=== PATIENT | female | born 1945 | race Caucasian/White ===

== ENCOUNTER 2019-05-02 09:59 | Day surgery (SDC) | payer OTHER, MEDICARE ==
[2019-04-29 09:44] LABS: Absolute Lymphocytes (CBC) 0.4 K/uL (0.7-4.9); Basophils % 1.3 % (0-1.3); Hematocrit 40.8 % (36.0-45.0); Lymphocytes % 16.5 % (15.3-44.8); MPV 9.1 fL (7.6-11.3); RBC Red Blood Cell Count 4.46 M/uL (3.86-4.86)
[2019-04-29 10:04] LABS: Potassium 3.7 mmol/L (3.5-5.1)
[2019-04-29 10:28] LABS: Platelet Estimate DECR; Platelets, Giant PRESENT; Urine White Blood Cell Casts OK
[2019-04-29 10:29] LABS: Blood Morphology Comment NOT SEEN (NOT SEEN)
--- NOTE | 2019-04-29 11:58 | EKG ---
Test Date: 2019-04-29 Test Time: 08:35:33 Senior Business Process Analyst: SHERI MEASUREMENT RESULTS: Intervals: Rate: 63 UT: 168 QRSD: 82 QT: 424 QTc: 433 [place]: P: 41 UT: 168 QRS: -16 T: 60 INTERPRETIVE STATEMENTS: Normal sinus rhythm with sinus arrhythmia Normal ECG Compared to ECG 03/01/2016 06:14:09 Left-axis deviation no longer present Myocardial infarct finding no longer present Electronically Signed On 04-29-19 11:58:04 CDT by Petr Campbell
[2019-05-02] MEDS ORDERED: Ringers Lactate 1,000 ML IV ONE (10:05)
[2019-05-02] MEDS ORDERED: CEFAZOLIN/SWI 1gm 1 GM/10 ML SYR ONE (10:05)
[2019-05-02] MEDS ORDERED: FENTANYL CITR 100 MCG/2 ML ONE (11:06)
[2019-05-02] MEDS ORDERED: LIDOCAINE 1% MPF 5 ML VIAL ONE (11:06)
[2019-05-02] MEDS ORDERED: PROPOFOL 200 MG/20 ML VIAL IV ONE (11:06)
[2019-05-02] MEDS ORDERED: Mastisol Adhesive Liq ONE (12:08)
[2019-05-02] MEDS ORDERED: ONDANSETRON 4 MG/2 ML VIAL ONE ×2 (12:13→12:48)
[2019-05-02] MEDS ORDERED: HYDROMORPHONE HCL 1 MG/ML INJ ONE (12:41)
[2019-05-02] MEDS ORDERED: HEPARIN 500 UNIT/5 ML SYR IV ONE (13:50)
[2019-05-02] MEDS ORDERED: PROMETHAZINE 25 MG/ML VIAL ONE (14:03)
[2019-05-02] MEDS ORDERED: PROMETHAZINE 25 MG/ML VIAL IV ONE (14:10)
[2019-05-02] MEDS ORDERED: HYDROCODONE/APAP 7.5/325 MG TAB ONE (14:47)
[2019-05-02] MEDS ORDERED: HYDROCODONE/APAP 7.5/325 MG TAB PO ONE (14:49)
[2019-05-02 14:53] VITALS: BP 132/62; TEMP 98.6; O2SAT 98
--- NOTE | 2019-05-02 23:54 | OP ---
Date of Procedure: 05/02/2019 Surgeon: Troy Arcos MD Preoperative Diagnosis: Lymphadenopathy. Postoperative Diagnosis: Lymphadenopathy. Procedure: Incisional biopsy of enlarged left neck lymph node. Estimated Blood Loss: Minimal. Specimen: Lymph node. Findings: As above. Anesthesia: General. Complications: None. Disposition: Patient tolerated the procedure in stable condition, taken to Recovery in good general condition. Description Of Procedure: Patient was brought to the OR and placed in supine position. General anes thesia was begun. Patient was prepped and draped in usual sterile fashion in the left supraclavicula r area. Marcaine 0.5% was infiltrated locally. A 15-blade was used to make a 3 cm incision. Subcut aneous tissue was divided. Deep to the subcutaneous tissue, enlarged lymph node was identified. Inc isional biopsy performed with a sharp 15 blade. There was necrotic tissue present in there, but ther e was the lymph node tissue as well. Approximately a 2 cm area of lymph node was excised and sent to Pathology. Confirmation obtained. Wound was irrigated. Bleeding was controlled with cautery. The re was some oozing noted. Surgicel applied and the deep subcutaneous tissue closed with a figure-of- eight 3-0 chromic sutures. Then, 3-0 chromic used to reapproximate the subcutaneous tissue and close the skin. Sterile dressing was applied. The patient was awakened and taken to Recovery in good general condition. /MODL Voice ID: [id number] Report ID: [id number]
--- NOTE | 2019-05-03 | DS ---
Date of Discharge: 05/02/2019 Patient will go to Day Surgery, then home when stable. Disposition: Home. Condition: Stable. Discharge Instructions: Resume home medications and diet. Activity as tolerated. No heavy lifting. Remove outer dressing in 3 days. Shower. Keep wound clean and dry. Keep Steri-Strips on at all t imes. Follow up in my office in a week. Call for appointment. Tylenol No. 3 one tablet p.o. q.4 p. r.n. pain. /MODL Voice ID: [id number] Report ID: [id number]
== END 2019-05-02 15:20 | disposition home or self-care (01) ==
LOC: OR 09:59
PROVIDERS: ATTEND Surgery
PROC: 07B20ZX Excision of Left Neck Lymphatic, Open Approach, Diagnostic (ICD-10-PCS; principal; 2019-05-02 11:00)
DX: C77.0 Secondary and unspecified malignant neoplasm of lymph nodes of head, face and neck (principal); C48.2 Malignant neoplasm of peritoneum, unspecified; I10 Essential (primary) hypertension; M32.9 Systemic lupus erythematosus, unspecified; E07.9 Disorder of thyroid, unspecified
CPT/HCPCS: 93005; 85025; 80048; 36415; 88305; 88333; 38510; J2704; J2550 ×2; J3010; J1170; J1642; J0690; J7120; J2405 ×2

== ENCOUNTER 2019-07-03 00:15 | Inpatient (IN) | payer OTHER, MEDICARE ==
[2019-07-03] MEDS ORDERED: NA CHLORIDE 0.9% 500 ML ONE (00:55)
[2019-07-03 01:26] LABS: Hematocrit 34.6 % (36.0-45.0); MPV 9.5 fL (7.6-11.3); RBC Red Blood Cell Count 3.96 M/uL (3.86-4.86)
[2019-07-03 01:39] LABS: Albumin 2.7 g/dL (3.4-5.0); Bilirubin Direct 1.1 mg/dL (0-0.2); Bilirubin Total 2.5 mg/dL (0.2-1.0); Potassium 4.6 mmol/L (3.5-5.1); Protein, Total 6.7 g/dL (6.4-8.2)
[2019-07-03] MEDS ORDERED: MEPERIDINE HCL 25 MG/0.5 ML ONE (01:52)
[2019-07-03 02:03] LABS: Urine Blood 3+ (NEG); Urine Glucose NEGATIVE (NEG)
[2019-07-03 02:04] LABS: Urine Protein 3+ (NEG); Urine pH >8.5 (5.0-7.0)
[2019-07-03 02:19] LABS: Urine Culture Reflex Order NOT NEEDED
[2019-07-03 02:20] LABS: Urine Bacteria >50 /HPF (<20)
[2019-07-03 02:21] LABS: Urine Urothelial Cells <5 /HPF (NONE SEEN)
[2019-07-03 02:44] LABS: Platelet Estimate ADEQ
[2019-07-03] MEDS ORDERED: FENTANYL CITR 100 MCG/2 ML ONE ×3 (02:44→12:29)
[2019-07-03 02:45] LABS: Anisocytosis 1+; Blood Morphology Comment NOTED (NOT SEEN)
[2019-07-03] MEDS ORDERED: CEFEPIME 1 GM/100 ML BAG IV ONE ×2 (03:37→07:57)
--- NOTE | 2019-07-03 03:40 | ER ---
Nurse's Notes [facility] Name: Shannon Cook Age: 74 yrs Sex: Female : 1945 Arrival Date: 07/03/2019 Time: 00:20 Bed 7 Private MD: Diagnosis: Dehydration;Altered mental status, unspecified;Urinary tract infection, site not specified;Neutropenia, unspecified Presentation: 07/03 00:15 Presenting complaint: EMS states: complaints unable to move from the bed, unable to go rr5 restroom, she feels weak. she is diagnosed with stomach cancer 7 years ago now it went up to her collar bone. Her last chemotherapy session was 06/29/19. the family member they've given tramadol tablet. 00:15 Transition of care: patient was not received from another setting of care. Onset of rr5 symptoms was July 03, 2019. Risk Assessment: Do you want to hurt yourself or someone else? Patient reports no desire to harm self or others. Initial Sepsis Screen: Does the patient meet any 2 criteria? Temp <36.0*C (96.8*F)) or > 38.3*C (100.9*F). HR > 90 bpm. Yes Does the patient have a suspected source of infection? Yes: Other: cancer patient ongoing chemotherapy session. Care prior to arrival: None. 00:15 Method Of Arrival: EMS: [facility] rr5 00:15 Acuity: [place] 2 rr5 Historical: - Allergies: 00:20 Ciprofloxacin (Vomiting, rash); rr5 00:20 Sulfa (Sulfonamide Antibiotics); rr5 01:00 Keflex; rr5 01:00 Iodine; rr5 01:00 caftin; rr5 01:00 Augmentin ES-600; rr5 01:00 TETRACYCLINES; rr5 01:00 morphine; rr5 - Home Meds: 00:20 amlodipine 5 mg tab 1 tab once daily [Active]; clonidine HCl 0.1 mg Oral tab 1 tab rr5 after meals and before bedtime [Active]; duloxetine 30 mg Oral cpDR [Active]; Furosemide Oral once daily [Active]; Losartin 100mg PO Daily [Active]; metaxalone 800 mg Oral tab [Active]; MuGard mucous membrane soln [Active]; levothyroxine 200 mcg tab 1 tab once daily [Active]; gabapentin 300 mg Oral cap [Active]; odansetron [Active]; Potassium Chloride Oral [Active]; pravastatin 20 mg Oral tab 1 tab once daily [Active]; 01:00 Spironolactone Oral [Active]; loratadine 10 mg oral tab [Active]; Omeprazole Oral rr5 [Active]; Prednisone Oral [Active]; Zofran Oral [Active]; Tylenol Extra Strength oral oral [Active]; Stool Softener oral oral [Active]; Miralax Oral [Active]; Tylenol-Codeine #3 oral oral [Active]; Lomotil oral oral [Active]; theracan [Active]; ojibwa herbal [Active]; - PMHx: 00:20 acid reflux; Hyperlipidemia; Hypertension; Peritoneal Cancer; stomach cancer; rr5 - Immunization history:: Adult Immunizations unknown. - Social history:: Smoking status: unknown. - Ebola Screening: : Patient negative for fever greater than or equal to 101.5 degrees Fahrenheit, and additional compatible Ebola Virus Disease symptoms Patient denies exposure to infectious person Patient denies travel to an Ebola-affected area in the 21 days before illness onset. - History obtained from: EMS. Screenin:20 Abuse screen: Denies threats or abuse. Denies injuries from another. Nutritional rr5 screening: No deficits noted. Tuberculosis screening: No symptoms or risk factors identified. Fall Risk IV access (20 points). Gait- Impaired (20 pts.). Total Arroyo Fall Scale indicates Low Risk Score (25-44 pts). Fall prevention measures have been instituted. Side Rails Up X 2 Placed close to Nursing Station Frequent Obs/Assesments occuring Family Present and informed to notify staff if they need to leave bedside As available Patient and Family Educated on Fall Prevention Program and strategies. Assessment: 00:30 General: Appears ill, Behavior is calm. Pain: Complains of pain in generalized Noted to lp1 be grimacing, moaning. Neuro: Level of Consciousness is awake, obeys commands, Oriented to person, place. Cardiovascular: Patient's skin is warm and dry. Respiratory: Airway is patent Respiratory effort is even, Respiratory pattern is regular, Breath sounds are clear bilaterally. GI: Abdomen is round obese, Bowel sounds present X 4 quads. Parent/caregiver reports the patient having 4L of fluid removed from patient's abdomen. : No signs and/or symptoms were reported regarding the genitourinary system. EENT: No signs and/or symptoms were reported regarding the EENT system. Derm: Skin is thin, with poor turgor Skin is dry, Skin is pale, Skin temperature is warm. Musculoskeletal: Circulation, motion, and sensation intact. 01:30 Reassessment: Lab at bedside for second set of blood cultures. lp1 01:39 Reassessment: Daughter at bedside requesting if patient can have medication for pain, lp1 "her bones hurt from the cancer". 01:52 Reassessment: Verbal order from Provider for Demerol 25 mg IV now. lp1 02:00 Reassessment: mask applied to patient for neutropenic precautions. lp1 02:49 Reassessment: Dr. Gaston at bedside to discuss results and plan of care with patient and lp1 family; Aware of waiting for CT results. 03:35 Reassessment: Patient linens changed at this time; brief changed. lp1 Vital Signs: 00:20 BP 127 / 76; Pulse 102; Resp 22; Temp 100.2(R); Pulse Ox 98% ; Weight 90.72 kg; rr5 01:15 BP 130 / 58; Pulse 93; Resp 17; Pulse Ox 97% on R/A; lp1 02:00 BP 139 / 75; Pulse 91; Resp 13; Pulse Ox 98% on R/A; lp1 02:45 BP 144 / 81; Pulse 92; Resp 15; Pulse Ox 100% on R/A; lp1 03:30 BP 143 / 79; Pulse 90; Resp 14; Pulse Ox 99% on R/A; lp1 04:00 BP 138 / 76; Pulse 79; Resp 15; Pulse Ox 98% on R/A; lp1 05:00 BP 136 / 71; Pulse 85; Resp 15; Pulse Ox 98% on R/A; lp1 05:30 Temp 99.1(O); lp1 ED Course: 00:15 Maintain EMS IV. Dressing intact. Good blood return noted. Site clean \\T\\ dry. Gauge \\T\\ rr 5 site: G22 at left hand. 00:20 Patient arrived in ED. rn 00:20 Aidan Gaston MD is Attending Physician. rn 00:25 Arm band placed on. EKG completed in triage. Results shown to MD. rr5 00:30 Hirsch cath inserted, using sterile technique, 18 Fr., by me, balloon inflated, to ds4 gravity drainage, urine specimen collected. 00:32 Triage completed. rr5 00:42 Aysha Rader, RN is Primary Nurse. lp1 00:50 Inserted saline lock: 22 gauge in right antecubital area, using aseptic technique. lp1 Blood collected. 00:50 First set of blood cultures drawn by me. lp1 01:01 Patient has correct armband on for positive identification. Bed in low position. Call lp1 light in reach. Side rails up X2. watch parts grinder on. Pulse ox on. NIBP on. 01:05 Flu and/or RSV swab sent to lab. lp1 01:33 CT completed. Pt tolerated procedure poorly. Patient moved to CT via stretcher. Patient eh moved back from CT. 01:36 CT Abd/Pelvis - Without Contrast In Process Unspecified. EDMS 02:17 Hirsch cath removed intact, balloon deflated. ds4 03:39 Leonel Viveros MD is Hospitalizing Provider. rn 03:39 Archie Viveros MD is Hospitalizing Provider. rn 03:57 No provider procedures requiring assistance completed. Patient admitted, IV remains in lp1 place. 08:32 Primary Nurse role handed off by Aysha Rader, KEERTHI rb1 08:32 Cherelle Nation, KEERTHI is Primary Nurse. rb1 14:12 Awaiting: unsuccessful attempt to call report at this time. tw2 14:53 Awaiting: unsuccessful attempt to call report at this time. tw2 15:05 Report given to KEERTHI Rios at this time. tw2 Administered Medications: 00:50 Drug: NS 0.9% 500 ml Route: IV; Rate: bolus; Site: left hand; lp1 02:30 Follow up: IV Status: Completed infusion; IV Intake: 500ml lp1 01:53 Not Given (Patient Refused; Patient states it makes her hallucinate): Demerol 25 mg IVP lp1 once; RASS on ADMIN: Combtv4, Very Agttd3, Agttd2, Rstlss1, AlertClm0, Drwsy-1, Lt Sdtn-2, Mod Sdtn-3, Dp Sdtn-4, UnArsble-5 02:48 Drug: fentaNYL (PF) 50 mcg {Note: RASS 1.} Route: IVP; Site: left hand; lp1 03:15 Follow up: Response: Pain is decreased; RASS: Alert and Calm (0) lp1 03:55 Drug: Cefepime 1 grams Route: IVPB; Rate: 200 ml/hr; Infused Over: 30 mins; Site: left lp1 hand; 04:30 Follow up: Response: No adverse reaction; IV Status: Completed infusion; IV Intake: rr5 100ml 04:02 Drug: NS 0.9% 500 ml Route: IV; Rate: bolus; Site: left hand; rr5 04:33 Follow up: Response: No adverse reaction; IV Status: Completed infusion; IV Intake: rr5 500ml 04:33 Drug: NS 0.9% 1000 ml Route: IV; Rate: 75 ml/hr; Site: left hand; rr5 05:48 Follow up: IV Status: Infusion continued upon admission lp1 Intake: 02:30 IV: 500ml; Total: 500ml. lp1 04:30 IV: 100ml; Total: 600ml. rr5 04:33 IV: 500ml; Total: 1100ml. rr5 Outcome: 03:39 Decision to Hospitalize by Provider. rn 03:57 Condition: stable lp1 03:57 Instructed on the need for admit. 05:49 Admitted to ER Hold. Please see [facility] for further documentation. lp1 15:15 Patient left the ED. tw2 Signatures: Dispatcher [employer] Alejandro Avilez Roman, MD MD rn Pena, Laura, RN RN lp1 Alfredo Campoverde ds4 Cherelle Nation RN RN rb1 Caryn Bunn RN RN tw2 Ranulfo Mata RN RN rr5 Corrections: (The following items were deleted from the chart) 01:00 00:20 Allergies: PENICILLINS; rr5 rr5 01:02 00:15 Inserted saline lock: 22 gauge in left hand, using aseptic technique. rr5 rr5
--- NOTE | 2019-07-03 03:40 | EDPHYS ---
Physician Documentation [facility] Name: Shannon Cook Age: 74 yrs Sex: Female : 1945 Arrival Date: 07/03/2019 Time: 00:20 Bed 7 Private MD: ED Physician Aidan Gaston HPI: 07/03 00:23 This 74 yrs old Female presents to ER via Unassigned with complaints of rn weakness, abd pain. 00:23 The patient presents with decreased mental status. Onset: The symptoms/episode rn began/occurred today. Possible causes: unknown. Current symptoms: In the emergency department the patient's symptoms are unchanged from the initial presentation. It is unknown whether or not the patient has had similar symptoms in the past. Per EMS, called for generalized weakness, not able to get out of bed or use bathroom, unclear onset, has known gastric cancer that has spread to bone, pt reports abd pain and has not been eating/drinking. family not here to give more info.. Historical: - Allergies: 00:20 Ciprofloxacin (Vomiting, rash); rr5 00:20 Sulfa (Sulfonamide Antibiotics); rr5 01:00 Keflex; rr5 01:00 Iodine; rr5 01:00 caftin; rr5 01:00 Augmentin ES-600; rr5 01:00 TETRACYCLINES; rr5 01:00 morphine; rr5 - Home Meds: 00:20 amlodipine 5 mg tab 1 tab once daily [Active]; clonidine HCl 0.1 mg Oral tab 1 tab rr5 after meals and before bedtime [Active]; duloxetine 30 mg Oral cpDR [Active]; Furosemide Oral once daily [Active]; Losartin 100mg PO Daily [Active]; metaxalone 800 mg Oral tab [Active]; MuGard mucous membrane soln [Active]; levothyroxine 200 mcg tab 1 tab once daily [Active]; gabapentin 300 mg Oral cap [Active]; odansetron [Active]; Potassium Chloride Oral [Active]; pravastatin 20 mg Oral tab 1 tab once daily [Active]; 01:00 Spironolactone Oral [Active]; loratadine 10 mg oral tab [Active]; Omeprazole Oral rr5 [Active]; Prednisone Oral [Active]; Zofran Oral [Active]; Tylenol Extra Strength oral oral [Active]; Stool Softener oral oral [Active]; Miralax Oral [Active]; Tylenol-Codeine #3 oral oral [Active]; Lomotil oral oral [Active]; theracan [Active]; ojibwa herbal [Active]; - PMHx: 00:20 acid reflux; Hyperlipidemia; Hypertension; Peritoneal Cancer; stomach cancer; rr5 - Immunization history:: Adult Immunizations unknown. - Social history:: Smoking status: unknown. - Ebola Screening: : Patient negative for fever greater than or equal to 101.5 degrees Fahrenheit, and additional compatible Ebola Virus Disease symptoms Patient denies exposure to infectious person Patient denies travel to an Ebola-affected area in the 21 days before illness onset. - History obtained from: EMS. ROS: 00:23 Constitutional: + fever Eyes: Negative for injury, pain, redness, and discharge, ENT: rn Negative for injury, pain, and discharge, Cardiovascular: Negative for chest pain, palpitations, and edema, Respiratory: Negative for shortness of breath, cough, wheezing, and pleuritic chest pain, Abdomen/GI: + abd pain, negative for vomiting/diarrhea MS/Extremity: Negative for injury and deformity, Skin: Negative for injury, rash, and discoloration, Neuro: Negative for headache, numbness, tingling, and seizure. Exam: 00:23 Constitutional: Overweight woman, dry MM, and appears weak Head/Face: Normocephalic, rn atraumatic. ENT: dry MM Cardiovascular: Regular rate and rhythm Respiratory: No increased work of breathing, no retractions or nasal flaring. Abdomen/GI: soft, + diffuse abd tenderness, no rebound MS/ Extremity: Pulses equal, no cyanosis. Neuro: Somnolent, answers some questions, appears very weak and slow to respond, constantly licking lips. moves all 4 extremities but cannot keep either off of bed. Vital Signs: 00:20 BP 127 / 76; Pulse 102; Resp 22; Temp 100.2(R); Pulse Ox 98% ; Weight 90.72 kg; rr5 01:15 BP 130 / 58; Pulse 93; Resp 17; Pulse Ox 97% on R/A; lp1 02:00 BP 139 / 75; Pulse 91; Resp 13; Pulse Ox 98% on R/A; lp1 02:45 BP 144 / 81; Pulse 92; Resp 15; Pulse Ox 100% on R/A; lp1 03:30 BP 143 / 79; Pulse 90; Resp 14; Pulse Ox 99% on R/A; lp1 04:00 BP 138 / 76; Pulse 79; Resp 15; Pulse Ox 98% on R/A; lp1 05:00 BP 136 / 71; Pulse 85; Resp 15; Pulse Ox 98% on R/A; lp1 05:30 Temp 99.1(O); lp1 MDM: 00:20 Patient medically screened. rn 03:37 Differential Diagnosis: electrolyte abnormality, sepsis, UTI, volume depletion. Data rn reviewed: vital signs, nurses notes, lab test result(s), radiologic studies, CT scan, and as a result, I will admit patient. Counseling: I had a detailed discussion with the patient and/or guardian regarding: the historical points, exam findings, and any diagnostic results supporting the discharge/admit diagnosis, lab results, radiology results, the need for further work-up and treatment in the hospital. Response to treatment: the patient's symptoms have markedly improved after treatment, and as a result, I will admit patient. Admission orders: after a detailed discussion of the patient's condition and case, the admit orders are written by me. ED course: Pt with dehydration, UTI, weakness, neutropenia, will admit to [facility] for IV abx. CT shows ascites. Pt with extensive allergies, last visit given cefepime without reaction, spoke with family and we all agreed to try again given UTI. . 03:42 ED course: Contacted Dr. Khalil regarding admission, no answer, left message. . rn 07/03 00:22 Order name: Basic Metabolic Panel; Complete Time: : rn 07/03 00:22 Order name: CBC with Diff; Complete Time: 02:46 rn 07/03 00:22 Order name: Creatinine for Radiology; Complete Time: : rn 07/03 00:22 Order name: Hepatic Function; Complete Time: : rn 07/03 00:22 Order name: Lipase; Complete Time: : rn 07/03 00:22 Order name: Blood Culture Adult (2) rn 07/03 00:22 Order name: Procalcitonin; Complete Time: : rn 07/03 00:22 Order name: Lactate; Complete Time: : rn 07/03 00:22 Order name: AMMONIA; Complete Time: 02:32 rn 07/03 00:22 Order name: Urine Culture rn 07/03 00:22 Order name: Urine Microscopic Only; Complete Time: 02:32 rn 07/03 00:22 Order name: Flu; Complete Time: 02:32 rn 07/03 01:13 Order name: Glucose, Ancillary Testing; Complete Time: 01:22 EDMS 07/03 01:13 Order name: Urine Dipstick--Ancillary (enter results); Complete Time: 02:32 cm6 07/03 00:22 Order name: IV Saline Lock; Complete Time: 00:59 rn 07/03 00:22 Order name: Labs collected and sent; Complete Time: 00:59 rn 07/03 00:55 Order name: CT Abd/Pelvis - Without Contrast 07/03 01:50 Order name: Manual Differential; Complete Time: 02:46 EDMS 07/03 04:00 Order name: Lactate Sepsis 2 HR Follow-up EDMO 07/03 08:03 Order name: Diet Regular; Complete Time: 08:04 tw2 07/03 08:50 Order name: RAD EDMS 07/03 12:03 Order name: Diet Regular; Complete Time: 12:04 ca1 07/03 12:33 Order name: Diet Regular; Complete Time: 12:34 ss 07/03 00:22 Order name: Urine Dipstick-Ancillary (obtain specimen); Complete Time: 00:59 rn Administered Medications: 00:50 Drug: NS 0.9% 500 ml Route: IV; Rate: bolus; Site: left hand; lp1 02:30 Follow up: IV Status: Completed infusion; IV Intake: 500ml lp1 01:53 Not Given (Patient Refused; Patient states it makes her hallucinate): Demerol 25 mg IVP lp1 once; RASS on ADMIN: Combtv4, Very Agttd3, Agttd2, Rstlss1, AlertClm0, Drwsy-1, Lt Sdtn-2, Mod Sdtn-3, Dp Sdtn-4, UnArsble-5 02:48 Drug: fentaNYL (PF) 50 mcg {Note: RASS 1.} Route: IVP; Site: left hand; lp1 03:15 Follow up: Response: Pain is decreased; RASS: Alert and Calm (0) lp1 03:55 Drug: Cefepime 1 grams Route: IVPB; Rate: 200 ml/hr; Infused Over: 30 mins; Site: left lp1 hand; 04:30 Follow up: Response: No adverse reaction; IV Status: Completed infusion; IV Intake: rr5 100ml 04:02 Drug: NS 0.9% 500 ml Route: IV; Rate: bolus; Site: left hand; rr5 04:33 Follow up: Response: No adverse reaction; IV Status: Completed infusion; IV Intake: rr5 500ml 04:33 Drug: NS 0.9% 1000 ml Route: IV; Rate: 75 ml/hr; Site: left hand; rr5 05:48 Follow up: IV Status: Infusion continued upon admission lp1 Disposition: 07/03/19 03:39 Hospitalization ordered by Archie Viveros for Inpatient Admission. Preliminary diagnosis are Dehydration, Altered mental status, unspecified, Urinary tract infection, site not specified, Neutropenia, unspecified. - Bed requested for Telemetry/MedSurg (Inpatient). - Status is Inpatient Admission. tw2 - Condition is Stable. - Problem is new. - Symptoms have improved. UTI on Admission? Yes Signatures: Dispatcher [employer] EDMO Aidan Gaston MD MD rn Smirch, Shelby, RN RN ss Aysha Rader RN RN lp1 Claudia Bañuelos RN RN Caryn Bunn RN RN tw2 Ranulfo Mata, RN RN rr5 Corrections: (The following items were deleted from the chart) 01:00 00:20 Allergies: PENICILLINS; rr5 rr5 01:31 00:25 Abdomen Pelvis W Con+CT.RAD.BRZ ordered. [facility] EDMO 05:12 03:39 Hospitalization Ordered by A Jackeline RODRIGUEZ for Inpatient Admission. Preliminary cg diagnosis is Dehydration; Altered mental status, unspecified; Urinary tract infection, site not specified; Neutropenia, unspecified. Bed requested for Telemetry/MedSurg (Inpatient). Status is Inpatient Admission. Condition is Stable. Problem is new. Symptoms have improved. UTI on Admission? Yes. rn 14:10 05:12 07/03/2019 03:39 Hospitalization Ordered by A Jackeline RODRIGUEZ for Inpatient Admission. Preliminary diagnosis is Dehydration; Altered mental status, unspecified; Urinary tract infection, site not specified; Neutropenia, unspecified. Bed requested for [facility] ER HOLD. Status is Inpatient Admission. Condition is Stable. Problem is new. Symptoms have improved. UTI on Admission? Yes. 15:15 14:10 07/03/2019 03:39 Hospitalization Ordered by A Jackeline RODRIGUEZ for Inpatient Admission. tw2 Preliminary diagnosis is Dehydration; Altered mental status, unspecified; Urinary tract infection, site not specified; Neutropenia, unspecified. Bed requested for Telemetry/MedSurg (Inpatient). Status is Inpatient Admission. Condition is Stable. Problem is new. Symptoms have improved. UTI on Admission? Yes. ss
[2019-07-03] MEDS ORDERED: NA CHLORIDE 0.9% 1,000 ML ONE ×2 (04:01→11:47)
[2019-07-03] MEDS ORDERED: ACETAMINOPHEN 500 MG TAB PO PRN (05:52)
[2019-07-03] MEDS: NA CHLORIDE 0.9% 1,000 ML IV SCH ×3 (05:52→21:15)
[2019-07-03] MEDS: FENTANYL CITR 100 MCG/2 ML IV PRN ×4 (07:20→21:13)
--- NOTE | 2019-07-03 08:50 | RAD REPORT ---
EXAM DESCRIPTION: [facility] Single View07/03/2019 7:38 am CLINICAL HISTORY: Fever COMPARISON: February 2019 FINDINGS: The lungs appear clear of acute infiltrate. The heart is mildly enlarged Central venous line is in place IMPRESSION: No acute abnormalities displayed
[2019-07-03] MEDS: TBO-FILGRASTIM 480 MCG/0.8 ML SYR SQ SCH (09:00)
[2019-07-03] MEDS ORDERED: CEFEPIME 1 GM/VIAL IV SCH (09:00)
[2019-07-03] MEDS: ONDANSETRON 4 MG/2 ML VIAL IV PRN (12:25)
[2019-07-03] MEDS ORDERED: ONDANSETRON 4 MG/2 ML VIAL ONE (12:29)
[2019-07-03] MEDS ORDERED: HOME MED 1 EA UNK (Ondansetron Hcl [Zofran] 4 MG) PO PRN (12:34)
[2019-07-03] MEDS ORDERED: ONDANSETRON 4 MG (ODT) TAB PO PRN (15:24)
[2019-07-03] MEDS: CEFEPIME/SWI 1gm 10 ML IVP SCH (16:25)
--- NOTE | 2019-07-03 20:31 | HP ---
Date of Admission: 07/03/2019 Chief Complaint: Feeling weak and abdominal pain. History Of Present Illness: This is a 74-year-old female patient with ovarian cancer with peritoneal carcinomatosis, who is under care of our oncologist, Dr. Manning, has been undergoing chemotherapy with her. Last chemotherapy was on Eleanor Cinthya, so about 6 days ago. The patient's daughter and patie nt, they both reported that her condition in last several days has been declining on a day-to-day bas is with increasing generalized weakness, worsening appetite, limited mobility, and mostly lately stay ing in bed to the extent that she was urinating and having bowel movement on her own in bed yesterday and very weak not feeling good at all and having some abdominal distention with some abdominal disco mfort. With all these complaints, she was brought into the emergency room this morning and after she was evaluated she was admitted to the hospital. I saw her in the emergency room and her daughter wa s with her at bedside. Allergies: ACCORDING TO OUTPATIENT RECORDS, SHE IS LISTED ALLERGIC TO MORPHINE CAUSING HALLUCINAT ION AND SULFA CAUSING NAUSEA. Medications: List reviewed. Review of Systems: Constitutional: As mentioned above. GI: As mentioned above. All other systems reviewed and negative. Past Medical History: Significant for allergic rhinitis; hypothyroidism; hypertension; hyperlipidemi a; gastroesophageal reflux disease; cirrhosis of liver; ascites; ovarian cancer with peritoneal carci nomatosis; chronic kidney disease, stage 3, her baseline creatinine is around 1.2, and last creatinin e was in April 2019 on outpatient basis; rheumatoid arthritis; and thrombocytopenia. Past Surgical History: Tonsillectomy, cholecystectomy, hysterectomy, back surgery, and shoulder surg shereen. Family History: Father of cirrhosis of liver. Mother had congestive heart failure, hypertensio n, and diabetes. Sister with lung cancer, liver cancer, kidney cancer and diabetes. Social History: Negative for smoking and alcohol use. Physical Examination: Vital Signs: When she first came into emergency room, temperature was 100.2, oxygen saturation 98%, weight 90.72 kg, respiratory rate 22, pulse 102, blood pressure 127/76. General: Patient appears extremely weak, not in any distress. HEENT: Head atraumatic, normocephalic. Conjunctivae nonerythematous. Sclerae white. Mouth, no thr ush or edema noted. Ears/Nose, no mass, lesion, discharge noted. Her oral mucosa is dry. Neck: Supple. No JVD, lymph nodes, bruit, thyromegaly noted. Lungs: Bilateral good equal air entry. Clear to auscultation. No rhonchi. No rales. Heart: Normal heart sounds, no murmur or gallop. Abdomen: Distended with ascites. No guarding, rigidity. Vague mild diffuse abdominal tenderness pre sent. No rebound tenderness. Bowel sounds normoactive. Extremities: No leg edema. No calf tenderness. Skin: No rash, ulcer, cellulitis. Lymphatics: No lymph node enlargement in neck, supraclavicular, infraclavicular region. Neuro: No focal neurological deficit. Chest: Unremarkable. External Genitalia: Deferred. Rectal: Deferred. Laboratory Data: White count 0.3, hemoglobin 11.7, platelets 90, 30% neutrophils and 7 bands. Sodiu m 140, potassium 4.6, chloride 107, bicarb 23, BUN 36, creatinine 2.15, glucose 89, total bilirubin 2 .5, direct bilirubin 1.1, SGOT 23, SGPT 17, albumin 2.7, procalcitonin 2.38. Lactic acid 3.1. Urina lysis positive for nitrite, 1+ esterase, more than 50 bacteria, wbc TNTC. CAT scan of abdomen shows evidence of ascites and changes of cirrhosis of liver. No other acute findings noted. Impression: 1.Acute pyelonephritis. 2.Neutropenia. 3.Pancytopenia. 4.Ovarian cancer with peritoneal carcinomatosis. 5.Cirrhosis of liver with ascites. 6.Acute kidney injury. 7.Volume depletion. 8.Hypertension. 9.Hyperlipidemia. 10.Gastroesophageal reflux disease. Plan: Admit patient to hospital for further evaluation and management of this problem. Patient is a ppropriate for inpatient and is expected to spend 2 midnights in hospital. IV fluid, IV antibiotics will be given. We will consult her oncologist, Dr. Manning. Strict hand washing and reverse isolation was ordered. We will start her on Neupogen for her severe neutropenia problem. Follow up on blood c ount on a daily basis starting tomorrow. We will consult Physical Therapy and DVT prophylaxis will b e given per order. We will monitor her ascites at this point. There is no indication of paracentesi s, but if it gets worse, we will have to consider that and this was discussed with family as well. I did talk to her about code status and the patient and her daughter, they both want everything done, so the patient remains full code. Overall, prognosis is poor. MARCY/CIPRIANO Voice ID: [id number]
[2019-07-03] MEDS: HYDROXYCHLOROQUINE 200MG TAB PO SCH (21:02)
[2019-07-03] MEDS: DOCUSATE NA 100 MG CAP PO SCH (21:03)
[2019-07-03] MEDS: cloNIDine HCL 0.1 MG TAB PO SCH (21:03)
[2019-07-04] MEDS: FENTANYL CITR 100 MCG/2 ML IV PRN ×4 (01:55→21:37)
[2019-07-04] MEDS: CEFEPIME/SWI 1gm 10 ML IVP SCH ×2 (03:13→17:41)
[2019-07-04] MEDS: PANTOPRAZOLE 40MG TABLET PO SCH (05:37)
[2019-07-04] MEDS: AMLODIPINE 5 MG TAB PO SCH (05:37)
[2019-07-04] MEDS: LEVOTHYROXINE SOD 0.075 MG TAB PO SCH (05:37)
[2019-07-04] MEDS: LEVOTHYROXINE SOD 0.1 MG TAB PO SCH (05:37)
[2019-07-04] MEDS: NA CHLORIDE 0.9% 1,000 ML IV SCH (05:52)
[2019-07-04 07:06] LABS: Potassium 4.2 mmol/L (3.5-5.1)
[2019-07-04 07:49] LABS: Absolute Lymphocytes (CBC) 0.1 K/uL (0.7-4.9); Basophils % 0.3 % (0-1.3); Hematocrit 27.3 % (36.0-45.0); Lymphocytes % 21.9 % (15.3-44.8); RBC Red Blood Cell Count 3.11 M/uL (3.86-4.86)
--- NOTE | 2019-07-04 08:45 | RAD REPORT ---
EXAM DESCRIPTION: CT - Abdomen Pelvis Wo Contrast - 07/03/2019 5:23 am CLINICAL HISTORY: ABD PAIN COMPARISON: 04/19/2019. TECHNIQUE: CT ABDOMEN PELVIS WITHOUT IV CONTRAST on 07/03/2019 12:55 AM [employer]ING WORKER This exam was performed according to our departmental dose-optimization program, which includes autom ated exposure control, adjustment of the mA and/or kV according to patient size and/or use of iterati ve reconstruction technique. FINDINGS: Lower lungs are clear. Abdomen: Liver is mildly cirrhotic in morphology. There is no biliary dilatation. Cholecystectomy was performed. Spleen measures 13.7 cm. Pancreas there is large amount of upper abdominal ascites. Adren al glands are normal. Kidneys are mildly atrophic. There is mild bilateral hydronephrosis. Abdominal aorta is normal in course and caliber without aneurysm. There is no free air. There is no r etroperitoneal adenopathy. Pelvis: There is no bowel obstruction. Urinary bladder is decompressed with a Hirsch catheter within. There is large amount of free pelvic fluid. Appendix is not clearly seen. Skeleton: There are no acute osseous findings. No suspicious bony lesions. IMPRESSION: Extensive ascites. Electronically signed by: Jesús Ibrahim MD 07/03/2019 1:47 AM [employer] WORKER Due to temporary technical issues with the PACS/Fluency reporting system, reports are being signed by the in house radiologist as a courtesy to ensure prompt reporting. The interpreting radiologist is f ully responsible for the content of the report.
[2019-07-04] MEDS ORDERED: HOME MED 1 EA UNK (Omeprazole [Omeprazole] 20 MG) PO SCH (09:00)
[2019-07-04] MEDS: TBO-FILGRASTIM 480 MCG/0.8 ML SYR SQ SCH (09:00)
[2019-07-04] MEDS: HYDROXYCHLOROQUINE 200MG TAB PO SCH ×2 (09:44→21:16)
[2019-07-04] MEDS: LORATADINE 10 MG TAB PO SCH (09:45)
[2019-07-04] MEDS: D5 0.45 NS 1,000 ML IV SCH ×2 (09:55→21:12)
[2019-07-04] MEDS: ENSURE CLEAR 200 ML CAN PO SCH ×3 (09:56→21:43)
[2019-07-04 09:59] LABS: Anisocytosis 2+; Blood Morphology Comment NOTED (NOT SEEN); Platelet Estimate DECR; Urine White Blood Cell Casts OK
--- NOTE | 2019-07-04 10:20 | EKG ---
Test Date: 2019-07-03 Test Time: 00:48:31 Agent Producer: ANNAMARIE MEASUREMENT RESULTS: Intervals: Rate: 96 AZ: 150 QRSD: 78 QT: 340 QTc: 429 Oley: P: 57 AZ: 150 QRS: -26 T: 55 INTERPRETIVE STATEMENTS: Normal sinus rhythm Possible Anterolateral infarct, age undetermined Abnormal ECG Compared to ECG 04/29/2019 08:35:33 Possible Myocardial infarct finding now present Sinus arrhythmia no longer present Electronically Signed On 07-04-19 10:20:00 [employer]FF [employer] OFFICER by De Hauser
[2019-07-04] MEDS: DOCUSATE NA 100 MG CAP PO SCH (21:00)
[2019-07-04] MEDS: cloNIDine HCL 0.1 MG TAB PO SCH (21:13)
--- NOTE | 2019-07-05 02:38 | PN ---
Date of Progress Note: 07/04/2019 Subjective: Patient was seen this morning for followup. No new complaints or problems reported by t he patient. Does not feel much different than yesterday. Daughter was at bedside. Objective: Vital Signs: Reviewed. HEENT: Unremarkable. Lungs: Clear to auscultation. Heart: Heart sounds normal. Abdomen: Soft, bowel sounds normal. No guarding, rigidity, tenderness, or distention. Extremities: No leg edema. Laboratory Data: White count 0.5, hemoglobin 9.1, platelets 44. Sodium 142, potassium 4.2, chloride 113, bicarb 21, BUN 41, creatinine 2.12, glucose 99. Impression: 1.Neutropenia. 2.Fever. 3.Anemia. 4.Thrombocytopenia. 5.Acute kidney injury. 6.Urinary tract infection. Plan: We will continue current medication, IV fluids, antibiotics. Continue Neupogen and follow up with Hematology . Follow up with Physical Therapy. MARCY/MODL Voice ID: [id number] Report ID: [id number]
[2019-07-05] MEDS: CEFEPIME/SWI 1gm 10 ML IVP SCH ×2 (04:14→16:47)
[2019-07-05 05:24] LABS: Magnesium 1.6 mg/dL (1.8-2.4); Potassium 3.6 mmol/L (3.5-5.1)
[2019-07-05] MEDS: AMLODIPINE 5 MG TAB PO SCH (06:12)
[2019-07-05] MEDS: FENTANYL CITR 100 MCG/2 ML IV PRN ×3 (06:13→19:50)
[2019-07-05] MEDS: LEVOTHYROXINE SOD 0.1 MG TAB PO SCH (06:13)
[2019-07-05] MEDS: PANTOPRAZOLE 40MG TABLET PO SCH (06:13)
[2019-07-05] MEDS: LEVOTHYROXINE SOD 0.075 MG TAB PO SCH (06:13)
[2019-07-05] MEDS: D5 0.45 NS 1,000 ML IV SCH ×3 (06:34→16:51)
[2019-07-05] MEDS: HYDROXYCHLOROQUINE 200MG TAB PO SCH ×2 (08:47→20:56)
[2019-07-05] MEDS: TBO-FILGRASTIM 480 MCG/0.8 ML SYR SQ SCH (08:47)
[2019-07-05] MEDS: ENSURE CLEAR 200 ML CAN PO SCH ×3 (08:48→20:57)
[2019-07-05] MEDS: LORATADINE 10 MG TAB PO SCH (08:48)
[2019-07-05 16:33] LABS: Absolute Lymphocytes (CBC) 0.4 K/uL (0.7-4.9); Basophils % 0.1 % (0-1.3); Hematocrit 32.2 % (36.0-45.0); Lymphocytes % 9.6 % (15.3-44.8); MPV 9.9 fL (7.6-11.3); RBC Red Blood Cell Count 3.63 M/uL (3.86-4.86)
[2019-07-05] MEDS ORDERED: POTASSIUM 25 MEQ EFFERV TAB PO ONE (16:59)
[2019-07-05] MEDS ORDERED: MAGNESIUM SULFATE 1 gm IVPB 1 GM/100 ML BAG IV ONE (18:00)
--- NOTE | 2019-07-05 18:51 | PN ---
Date of Progress Note: 07/05/2019 Subjective: Patient was seen this morning for followup. Her daughter was present with her at bedsid e. Reported that yesterday she had a good appetite. She did not get out of bed yesterday at all. P hysical therapy did come by, but she did not do any therapy and did not even get out of bed. Objective: Vital Signs: Reviewed. HEENT: Unremarkable. Lungs: Clear to auscultation. Heart: Sounds normal. Abdomen: Shows distended abdomen due to ascites, which is slightly worse than before. Bowel sounds normoactive. No guarding, rigidity, tenderness. Extremities: No leg edema. Laboratory Data: Lab was not able to collect the CBC specimen after multiple try. Chemistry this mo rning shows sodium 141, potassium 3.6, chloride 103, bicarb 20, BUN 38, creatinine 2.06, glucose 122, magnesium 1.6. Urine culture grew Proteus. Impression: 1.Urinary tract infection. 2.Pancytopenia. 3.Ovarian cancer with peritoneal carcinomatosis. 4.Ascites, malignant. Plan: We will continue current medications. Continue current antibiotics per order. Patient probab ly will need paracentesis in next couple of days. She was encouraged to continue to eat and take nut ritional supplement like Ensure per order. She has a Port-A-Cath and we will find out if use it, so we can use that for IV administration as well as to dra xu hammer. Continue Neupogen. MARCY/MODL Voice ID: [id number] Report ID: [id number]
[2019-07-05] MEDS: cloNIDine HCL 0.1 MG TAB PO SCH (20:56)
[2019-07-05] MEDS: DOCUSATE NA 100 MG CAP PO SCH (20:57)
[2019-07-05 21:51] LABS: Platelet Estimate DECR
[2019-07-05 22:04] LABS: Blood Morphology Comment NOTED (NOT SEEN); Toxic Granulation PRESENT
[2019-07-05 22:05] LABS: Poikilocytosis 1+; Polychromasia 1+
[2019-07-06] MEDS: FENTANYL CITR 100 MCG/2 ML IV PRN ×3 (00:18→21:15)
[2019-07-06] MEDS: CEFEPIME/SWI 1gm 10 ML IVP SCH ×2 (03:58→16:48)
[2019-07-06] MEDS: D5 0.45 NS 1,000 ML IV SCH ×3 (04:04→16:45)
[2019-07-06] MEDS: LEVOTHYROXINE SOD 0.1 MG TAB PO SCH (05:43)
[2019-07-06] MEDS: PANTOPRAZOLE 40MG TABLET PO SCH (05:43)
[2019-07-06] MEDS: LEVOTHYROXINE SOD 0.075 MG TAB PO SCH (05:44)
[2019-07-06] MEDS: AMLODIPINE 5 MG TAB PO SCH (05:55)
[2019-07-06 06:53] LABS: Magnesium 1.8 mg/dL (1.8-2.4); Potassium 3.3 mmol/L (3.5-5.1)
[2019-07-06] MEDS: HYDROXYCHLOROQUINE 200MG TAB PO SCH ×2 (08:14→21:22)
[2019-07-06] MEDS: TBO-FILGRASTIM 480 MCG/0.8 ML SYR SQ SCH (08:15)
[2019-07-06] MEDS: LORATADINE 10 MG TAB PO SCH (08:15)
[2019-07-06] MEDS: ENSURE CLEAR 200 ML CAN PO SCH ×3 (08:15→21:17)
[2019-07-06] MEDS ORDERED: POTASSIUM 25 MEQ EFFERV TAB PO ONE ×2 (09:00→16:00)
[2019-07-06] MEDS ORDERED: MAGNESIUM SULFATE 1 gm IVPB 1 GM/100 ML BAG IV ONE (09:00)
--- NOTE | 2019-07-06 13:49 | PN ---
Date of Progress Note: 07/06/2019 Subjective: The patient was seen this morning for followup. Her was at bedside with her. Y esterday, she sat in the bed for about 10 minutes with the physical therapy, but has not gotten out o f bed since she has been in the hospital. Appetite is poor. This morning, she just had few bites of food. Objective: Vital Signs: Reviewed. HEENT: Examination unremarkable. Lungs: Clear to auscultation. Heart: Sounds normal. Abdomen: Soft, distended with ascites. No guarding, rigidity, tenderness. Extremities: No leg edema. Skin: No evidence of any decubitus ulcer on her buttocks or sacral coccygeal region. Laboratory Data: Yesterday's white count 4.2, hemoglobin 10.6, platelets . Today, potassi um 3.3, magnesium 1.8. Impression: 1.Urinary tract infection, Proteus. 2.Anemia. 3.Thrombocytopenia. 4.Hypokalemia. 5.Hypomagnesemia. 6.Generalized weakness. 7.Ovarian cancer with peritoneal carcinomatosis. 8.Ascites. Plan: We will go ahead and continue current antibiotics tomorrow. We will plan to go ahead and do p aracentesis with the help of . We will send fluid for cytology as well as Gram stain and c ulture. I did talk to patient's daughter yesterday and today and we talked about discharge planning and disposition. Patient and patient's daughter, they both refusing to go to skilled nursing and the dalton antony's daughter informed me yesterday and today that the way patient's condition is currently while in the hospital, she understands, realizes, and she is going to be able to help take care of her at h ome and she does not want patient to go to skilled nursing and she lives behind patient, but she is nba g to move in with the patient while she needs this help. We will have Social Service help make arran gements for home health and home physical therapy. Replace electrolyte per protocol. Repeat blood w ork tomorrow. Discontinue Neupogen and I will see her tomorrow for followup. MARCY/MODL Voice ID: [id number] Report ID: [id number]
[2019-07-06] MEDS: cloNIDine HCL 0.1 MG TAB PO SCH (21:16)
[2019-07-06] MEDS: DOCUSATE NA 100 MG CAP PO SCH (21:16)
[2019-07-07] MEDS: D5 0.45 NS 1,000 ML IV SCH ×4 (00:51→16:30)
[2019-07-07] MEDS: CEFEPIME/SWI 1gm 10 ML IVP SCH (04:09)
[2019-07-07] MEDS: FENTANYL CITR 100 MCG/2 ML IV PRN ×3 (04:27→22:08)
[2019-07-07 05:40] VITALS: BMI 35.8
[2019-07-07 05:49] LABS: Hematocrit 31.6 % (36.0-45.0); MPV 10.5 fL (7.6-11.3); RBC Red Blood Cell Count 3.64 M/uL (3.86-4.86)
[2019-07-07] MEDS: AMLODIPINE 5 MG TAB PO SCH (05:49)
[2019-07-07] MEDS: LEVOTHYROXINE SOD 0.075 MG TAB PO SCH (05:50)
[2019-07-07] MEDS: PANTOPRAZOLE 40MG TABLET PO SCH (05:50)
[2019-07-07] MEDS: LEVOTHYROXINE SOD 0.1 MG TAB PO SCH (05:50)
[2019-07-07 05:59] LABS: Potassium 3.7 mmol/L (3.5-5.1); Protime INR 1.14
[2019-07-07 08:00] LABS: Blood Morphology Comment NOT SEEN (NOT SEEN); Platelet Estimate DECR; Toxic Granulation PRESENT
[2019-07-07] MEDS: HYDROXYCHLOROQUINE 200MG TAB PO SCH ×3 (09:00→21:59)
[2019-07-07] MEDS: LORATADINE 10 MG TAB PO SCH (09:00)
[2019-07-07] MEDS ORDERED: ALBUMIN HUMAN 25% 100 ML IV ONE (09:31)
[2019-07-07] MEDS: ENSURE CLEAR 200 ML CAN PO SCH ×3 (10:24→22:38)
[2019-07-07] MEDS: PIPER/TAZO/NS 2.25gm 2.25 GM/50 ML BAG IVPB SCH ×2 (10:46→16:31)
--- NOTE | 2019-07-07 11:34 | RAD REPORT ---
EXAM DESCRIPTION: US - Paracentesis Proc Guidance - 07/07/2019 9:09 am CLINICAL HISTORY: Ascites COMPARISON: CT abdomen and pelvis July 03, prior ultrasound procedure February 2016 TECHNIQUE: The patient presents for ultrasound-guided paracentesis. The procedure, risks and altern atives were discussed with the patient in detail. Oral and written consent were obtained. Time out p rocedure was performed. The patient had no contraindicated allergy or medication history. PT, INR va lues within acceptable limits. Platelet count was 58, low end of acceptable range. Preliminary sonographic evaluation identified right lower quadrant access site. The skin and deeper tissues were anesthetized with 1 percent lidocaine. Under direct sonographic visualization, a parace ntesis catheter was advanced into the peritoneal cavity. Approximately 10 mL of ascites retained for requested laboratory studies. Large volume drainage was initiated. Approximately 7 liters of ascites removed. At the conclusion of the procedure, catheter was withdrawn and a bandage placed at the puncture site. Postprocedure care and precaution instructions were given to the patient. Patient was transferred back to the floor for continued care and for albumin infusion using referring physician protocol. IMPRESSION: Ultrasound-guided paracentesis as detailed.
[2019-07-07] MEDS: cloNIDine HCL 0.1 MG TAB PO SCH (21:00)
[2019-07-07] MEDS ORDERED: POTASSIUM CL SA 10 MEQ TAB PO ONE (21:00)
--- NOTE | 2019-07-07 21:31 | PN ---
Date of Progress Note: 07/07/2019 Subjective: Patient was seen this morning for followup. She was lying in bed, not in distress. Her daughter was with her at bedside. No new complaints or problems reported except some abdominal disc omfort. Objective: Vital Signs: Reviewed. HEENT: Unremarkable. Lungs: Clear to auscultation. Heart: Heart sounds normal. Abdomen: Soft, bowel sounds normal. Abdomen is distended with ascites. Extremities: No leg edema. Laboratory Data: White count has gone up to 31.2 today, hemoglobin 10.5, platelets 58. Sodium 136, potassium 3.7, chloride 110, bicarb 21, BUN 29, creatinine 1.91, glucose 115, magnesium 2. Impression: 1.Acute renal failure. 2.Volume depletion. 3.Urinary tract infection. 4.Anemia. 5.Thrombocytopenia. Plan: We will go ahead and change antibiotics. Urine culture results reviewed. I will start her on Zosyn. Patient will have paracentesis done today and we will send fluid for cytology and Gram stain culture. Albumin 25 g IV x1 dose was ordered to be given after paracentesis and I will see her massiel rrow for followup. We will repeat blood work tomorrow. The patient's elevated WBC count is very lik ildefonso due to Neupogen that she was getting so far for neutropenia. Her last injection was yesterday. Details were discussed with her oncologist, Dr. Manning. I will see her tomor row for followup. MARCY/MODL Voice ID: [id number] Report ID: [id number]
[2019-07-07] MEDS: DOCUSATE NA 100 MG CAP PO SCH (21:58)
[2019-07-07] MEDS: HYDROCODONE/APAP 5/325 MG TAB PO PRN (21:59)
[2019-07-08] MEDS: D5 0.45 NS 1,000 ML IV SCH ×5 (00:15→21:30)
[2019-07-08] MEDS: PIPER/TAZO/NS 2.25gm 2.25 GM/50 ML BAG IVPB SCH ×3 (00:16→16:40)
[2019-07-08] MEDS: FENTANYL CITR 100 MCG/2 ML IV PRN ×4 (02:57→22:52)
[2019-07-08 05:11] LABS: Magnesium 1.9 mg/dL (1.8-2.4); Potassium 3.8 mmol/L (3.5-5.1)
[2019-07-08 05:14] LABS: Hematocrit 27.6 % (36.0-45.0); MPV 9.9 fL (7.6-11.3); RBC Red Blood Cell Count 3.19 M/uL (3.86-4.86)
[2019-07-08] MEDS: PANTOPRAZOLE 40MG TABLET PO SCH (06:04)
[2019-07-08] MEDS: AMLODIPINE 5 MG TAB PO SCH (06:04)
[2019-07-08] MEDS: LEVOTHYROXINE SOD 0.1 MG TAB PO SCH (06:05)
[2019-07-08] MEDS: LEVOTHYROXINE SOD 0.075 MG TAB PO SCH (06:05)
[2019-07-08 08:02] LABS: Blood Morphology Comment NOTED (NOT SEEN); Dohle Bodies PRESENT; Platelet Estimate DECR; Toxic Granulation 1+
[2019-07-08 08:03] LABS: Anisocytosis 1+; Polychromasia 1+
[2019-07-08] MEDS ORDERED: KCL 20 MEQ/100 mL IVPB 20 MEQ/100 ML BAG IV SCH (09:00)
[2019-07-08] MEDS: LORATADINE 10 MG TAB PO SCH (09:14)
[2019-07-08] MEDS: ENSURE CLEAR 200 ML CAN PO SCH ×3 (09:14→21:00)
[2019-07-08] MEDS: HYDROXYCHLOROQUINE 200MG TAB PO SCH ×2 (09:15→21:10)
--- NOTE | 2019-07-08 12:27 | CON ---
Date of Consultation: 07/08/2019 Reason For Consultation: Sacral decubitus. History Of Present Illness: Patient is a 74-year-old female with ovarian cancer with peritoneal carc inomatosis, who was undergoing chemotherapy and she had generalized weakness following that, limited mobility, and she was admitted with neutropenia and UTI, and she is bedridden and she cannot lie in a n air mattress. However, there was concern that there was a developing sacral decubitus and I was co nsulted. She is awake and alert. No open wound that is draining. No surrounding erythema, warmth, and edema. No purulent discharge. Review of Systems: Otherwise unremarkable. Past Medical History: Significant for hypothyroidism, hypertension, hyperlipidemia, ovarian cancer w ith peritoneal carcinomatosis, cirrhosis of the liver, ascites, GERD, chronic kidney disease, thrombo cytopenia, rheumatoid arthritis. Past Surgical History: Tonsillectomy, cholecystectomy, hysterectomy, back surgery, and shoulder surg shereen. Allergies: MORPHINE AND SULFA. Social History: She does not smoke or drink. Family History: Significant for cirrhosis in the father; CHF in the mother; hypertension, diabetes i n the mother; sister with lung cancer, liver cancer and kidney cancer and diabetes. Physical Examination: Vital Signs: Stable. She is currently afebrile. General: She is awake, alert. Head and Neck: No masses. Chest: Clear. Heart: S1, S2. Abdomen: Soft. Extremities: Neurovascularly intact. Neuro: Nonfocal. Sacrum: There is a stage II decubitus, approximately 3 x 1 cm on the left side of the midline. Ther e is no deep wound open right now. There is no surrounding erythema, warmth and edema. Laboratory Data: White count was 0.3 on admission but currently is 22.7. She was given some medicat ions for that. Platelets are 47. Her albumin was low at 2.7. Assessment: Sacral decubitus stage II right now. Recommendations: Nutritional optimization, vitamins as she can tolerate, offloading, and we used a p added gauze at this time. Should the wound become worse or not healed, then she can follow up with kala josé in the wound healing center upon discharge. Plan of care discussed in detail with the patient and family. JULIANA/CIPRIANO Voice ID: [id number] Report ID: [id number]
--- NOTE | 2019-07-08 16:21 | PN ---
Subjective: Patient was seen this morning for followup. Her daughter was with her at bedside. Her appetite is fair, which is better than what it was few days ago. She still has not gotten out of bed and has remained in bed throughout this hospitalization. Air mattress was ordered, but the patient is not using it because when air mattress was inflated, it was hurting her back, so she requested air mattress to be deflated and she is on regular mattress now. Today, daughter reported that there was a small area of decubitus on her buttocks and 2 days ago when I examined her, there was no evidence of any decubitus. Today, I did examine her after daughter informed me about it. Physical Examination: HEENT: Unremarkable. Lungs: Clear to auscultation. Heart: Sounds normal. Abdomen: Soft. Bowel sounds normal. Some mild vague tenderness present. No rebound tenderness. Extremities: No leg edema. Skin: Both heels examination is normal. Buttock examination shows left inner buttock has 5 to 7 mm area where it appears to be loss of superficial layer of skin. I am not convinced and sure if this i s a decubitus area or is just a loss of superficial area of skin. This area was covered with DuoDerm patch and it was reapplied after I examined her. Laboratory Data: White count 22.7, hemoglobin 9.2, platelets 40. Sodium 139, potassium 3.8, chlorid e 110, bicarb 22, BUN 29, creatinine 1.71, glucose 109, magnesium 1.9. Impression: 1.Urinary tract infection with ascites, status post paracentesis. 2.Anemia. 3.Thrombocytopenia. 4.Ovarian cancer with peritoneal carcinomatosis. 5.Generalized weakness. 6.Debility. Plan: We will continue current antibiotics and IV fluid. Renal function is improving slowly. Perit martin fluid Gram stain and culture result are pending and once we get that preliminary results, then we will decide about discharge and this was discussed with patient and family this morning. Patient was encouraged to eat and use nutritional supplement and have requested consultation from Dr. Josselyn noriega evaluate this area on her buttock and details were discussed with him. I will see her tomorrow for followup. We will repeat blood work tomorrow. MARCY/MODL Voice ID: [id number] Report ID: [id number]
[2019-07-08] MEDS: DOCUSATE NA 100 MG CAP PO SCH (21:11)
[2019-07-08] MEDS: cloNIDine HCL 0.1 MG TAB PO SCH (21:11)
[2019-07-08] MEDS: HYDROCODONE/APAP 5/325 MG TAB PO PRN (21:12)
[2019-07-09] MEDS: PIPER/TAZO/NS 2.25gm 2.25 GM/50 ML BAG IVPB SCH ×3 (00:09→16:38)
[2019-07-09] MEDS: LEVOTHYROXINE SOD 0.075 MG TAB PO SCH (05:42)
[2019-07-09] MEDS: PANTOPRAZOLE 40MG TABLET PO SCH (05:42)
[2019-07-09] MEDS: LEVOTHYROXINE SOD 0.1 MG TAB PO SCH (05:42)
[2019-07-09] MEDS: AMLODIPINE 5 MG TAB PO SCH (06:00)
[2019-07-09 06:15] LABS: Magnesium 1.9 mg/dL (1.8-2.4); Potassium 3.7 mmol/L (3.5-5.1)
[2019-07-09 06:26] LABS: Absolute Lymphocytes (CBC) 0.6 K/uL (0.7-4.9); Basophils % 0.2 % (0-1.3); Hematocrit 28.8 % (36.0-45.0); Lymphocytes % 3.5 % (15.3-44.8); MPV 10.1 fL (7.6-11.3); RBC Red Blood Cell Count 3.29 M/uL (3.86-4.86)
[2019-07-09] MEDS: ENSURE CLEAR 200 ML CAN PO SCH ×3 (09:00→20:24)
[2019-07-09] MEDS ORDERED: KCL 20 MEQ/100 mL IVPB 20 MEQ/100 ML BAG IV SCH (09:00)
[2019-07-09] MEDS: D5 0.45 NS 1,000 ML IV SCH ×2 (09:20→20:23)
[2019-07-09] MEDS: HYDROXYCHLOROQUINE 200MG TAB PO SCH ×2 (09:21→20:23)
[2019-07-09] MEDS: LORATADINE 10 MG TAB PO SCH (09:21)
[2019-07-09] MEDS ORDERED: BISACODYL 10 MG RECTAL SUPP PR ONE (11:00)
[2019-07-09] MEDS: FENTANYL CITR 100 MCG/2 ML IV PRN ×3 (11:26→20:13)
[2019-07-09 14:17] LABS: Urine Appearance CLOUDY; Urine Bilirubin NEGATIVE (NEG); Urine Blood 3+ (NEG); Urine Color RED; Urine Glucose NEGATIVE (NEG); Urine Protein 2+ (NEG); Urine Urobilinogen 0.2 mg/dL (0.2-1.0); Urine pH 6.5 (5.0-7.0)
[2019-07-09 14:21] LABS: Urine Bacteria 20-50 /HPF (<20); Urine Culture Reflex Order NOT NEEDED; Urine RBC TNTC /HPF (NONE SEEN)
--- NOTE | 2019-07-09 15:04 | PN ---
Date of Progress Note: 07/09/2019 Subjective: Patient was seen this morning for followup. She was lying in bed. Her family was with her at bedside. Family reported she is not feeling as good today as yesterday and day before yesterd ay. She had a paracentesis done day before yesterday and as of yesterday, patient's family noted venkata t her abdomen had started to have distention again. She has vague abdominal discomfort. No nausea, no vomiting. Her appetite is fair to poor. She has not had a bowel movement and with milk of magnes ia as she did not respond. Daughter informed me that she had very slight pinkish colored stain with urination in the diaper, but in last 2 days it has gotten worse and she showed me those stains inside the diaper. This is with the urination. Objective: Vital Signs: Reviewed. HEENT: Unremarkable. Lungs: Clear to auscultation. Patient not in any respiratory distress. Heart: Sounds normal. Abdomen: Soft. Bowel sounds normal. No guarding, rigidity. Vague abdominal tenderness unchanged a nd abdominal distention present with ascites, but not as bad as what it was before the paracentesis w as done. EXTREMITIES: No leg edema. Laboratory Data: White count 17.2, hemoglobin 9.4, platelets 49. Sodium 139, potassium 3.7, chlorid e 112, bicarb 21, BUN 24, creatinine 1.61, glucose 110. Magnesium 1.9. Peritoneal fluid cytology is negative for malignant cells and Gram stain and culture negative so far. Urine culture from 019 had grown proteus. Impression: 1.Cirrhosis of liver. 2.Urinary tract infection. 3.Gross hematuria. 4.Debility. 5.Generalized weakness. 6.Anemia. 7.Thrombocytopenia. 8.Volume depletion. 9.Decubitus ulcer. 10.Ovarian cancer with peritoneal carcinomatosis. Plan: Patient is already on appropriate antibiotic for urinary tract infection and now having hematu brittany, so what we will do is go ahead and collect the urine specimen. We will put a Hirsch catheter at least for 24 to 48 hours and decide at what point to take it out. Send a urine specimen for urinalys is, urine culture, and I have ordered kidney and bladder ultrasound. We will continue current antibi otics. Family will try to encourage her to eat her meals and take nutritional supplement like Ensure . Importance of appropriate nutrition was discussed with her. We will go ahead and discontinue her amlodipine and clonidine that she takes for hypertension and starting tomorrow. We will start her on furosemide and spironolactone to see if that helps to reduce chances of any recurrent fluid buildup in her peritoneal cavity from ascites. Overall, prognosis is poor and today in presence of family, I did bring up discussion about possibility of hospice care if her condition does not improve and ask family to at least think about it. All appropriate questions were answered. I will see her tomorrow for followup. We will repeat blood work tomorrow. MARCY/MODL Voice ID: [id number] Report ID: [id number]
[2019-07-09] MEDS: HYDROCODONE/APAP 5/325 MG TAB PO PRN ×2 (18:13→22:44)
--- NOTE | 2019-07-09 20:08 | RAD REPORT ---
EXAM DESCRIPTION: US - Renal Ultrasound-Complete - 07/09/2019 6:34 pm CLINICAL HISTORY: Hematuria COMPARISON: CT study July 03 FINDINGS: The right kidney measures 9.4 x 5.0 x 4.1 cm. The left kidney measures 10.5 x 5.6 x 5.1 c m. Cortical thickness is normal. There is a slight increase in cortical echogenicity that could indic ate medical renal disease. Mild to moderate dilatation of the pelvis and calices of the right kidney noted. Appearance matches the July 03 CT study. Fullness of the left collecting system also match es the prior CT study. No progression during the interval. Small complex 12 millimeter cystic area se en in the right kidney. This is probably a cyst but is limited in visualization. Bladder is contracted around a Hirsch catheter. IMPRESSION: Mild to moderate right-sided dilatation and mild left-sided dilatation, both similar to the August 03 CT study. Suspected medical renal disease. Echogenicity is increased.
[2019-07-09] MEDS: DOCUSATE NA 100 MG CAP PO SCH (21:00)
[2019-07-10] MEDS: PIPER/TAZO/NS 2.25gm 2.25 GM/50 ML BAG IVPB SCH ×3 (01:17→18:00)
[2019-07-10] MEDS: FENTANYL CITR 100 MCG/2 ML IV PRN ×5 (01:20→20:44)
[2019-07-10] MEDS: D5 0.45 NS 1,000 ML IV SCH ×2 (05:17→15:20)
[2019-07-10] MEDS: LEVOTHYROXINE SOD 0.1 MG TAB PO SCH (05:18)
[2019-07-10] MEDS: PANTOPRAZOLE 40MG TABLET PO SCH (05:18)
[2019-07-10] MEDS: LEVOTHYROXINE SOD 0.075 MG TAB PO SCH (05:18)
[2019-07-10 06:34] LABS: Albumin 1.7 g/dL (3.4-5.0); Bilirubin Total 0.5 mg/dL (0.2-1.0); Magnesium 1.8 mg/dL (1.8-2.4); Protein, Total 4.9 g/dL (6.4-8.2)
[2019-07-10 06:53] LABS: Hematocrit 29.7 % (36.0-45.0); MPV 9.9 fL (7.6-11.3); RBC Red Blood Cell Count 3.42 M/uL (3.86-4.86)
[2019-07-10 06:58] LABS: Blood Morphology Comment NOT SEEN (NOT SEEN); Platelet Estimate DECR; Toxic Granulation 1+
[2019-07-10] MEDS: HYDROCODONE/APAP 5/325 MG TAB PO PRN ×3 (08:41→18:48)
[2019-07-10] MEDS: FUROSEMIDE 20 MG TABLET PO SCH (08:42)
[2019-07-10] MEDS: HYDROXYCHLOROQUINE 200MG TAB PO SCH ×2 (08:42→20:42)
[2019-07-10] MEDS: ENSURE CLEAR 200 ML CAN PO SCH ×3 (08:42→20:55)
[2019-07-10] MEDS: SPIRONOLACTONE 25 MG TABLET PO SCH (08:42)
[2019-07-10] MEDS: LORATADINE 10 MG TAB PO SCH (08:42)
--- NOTE | 2019-07-10 16:07 | PN ---
Date of Progress Note: 07/10/2019 Subjective: Patient was seen this morning for followup. No new complaints or problems reported by debra manning. She was lying in bed. Her was with her at bedside. Yesterday evening, her hydrocod one was increased to every 4 hours as needed, and she is requesting that mostly because of her back p kit. Yesterday, she had a better appetite as reported by patient's this morning. Actually, she looks little better, little stronger than yesterday. Objective: Vital Signs: Reviewed. HEENT: Unremarkable. Lungs: Clear to auscultation. Heart: Sounds normal. Abdomen: Soft. Bowel sounds normal. No guarding, rigidity. Bowel sounds normoactive. Ascites pre sent, unchanged from yesterday. Extremities: No leg edema. Skin: Stage II decubitus on left inner buttock remains unchanged. Laboratory Data: White count 14.9, hemoglobin 9.8, platelets 60. Sodium 139, potassium 4, chloride 112, bicarb 19, BUN 25, creatinine 1.71, glucose 127. Albumin is very low at 1.7. Ammonia level 64. Impression: 1.Severe malnutrition. 2.Anemia. 3.Thrombocytopenia. 4.Urinary tract infection. 5.Gross hematuria. 6.Bilateral hydronephrosis. 7.Debility. 8.Generalized weakness. 9.Ovarian cancer with peritoneal carcinomatosis. 10.Cirrhosis of liver with ascites. Plan: Yesterday's urinalysis had shown 3+ leukocyte esterase, negative for nitrite, negative for est erase, wbc was TNTC, bacteria was 20 to 50, rbc TNTC. Patient remains on antibiotic Zosyn for urinar y tract infection. She has gross hematuria. Renal ultrasound and bladder ultrasound done yesterday, results reviewed and discussed with the patient's family member. She has bilateral hydronephrosis t hat has not changed compared to the CAT scan from July 03, 2019. We did not see any stone. Ther e is a possibility that this could be due to scar tissue or external compression considering her prio r history of ovarian cancer. She will benefit from Urology consultation, but we do not have any urol ogist theater set production designer today. We will continue to leave the Hirsch catheter in. Continue current IV fluid. R enal function has shown slight deterioration today compared to yesterday. WBC count is steadily impr oving. Platelet is better today. Overall, prognosis is guarded. All these details were discussed w ith family member. She was encouraged to drink at least 3 cans of Ensure a day to help improve her n utritional status. We will repeat blood work tomorrow and I will see her tomorrow. MARCY/MODL Voice ID: [id number] Report ID: [id number]
[2019-07-10] MEDS: DOCUSATE NA 100 MG CAP PO SCH (21:00)
[2019-07-11] MEDS: PIPER/TAZO/NS 2.25gm 2.25 GM/50 ML BAG IVPB SCH ×3 (00:55→16:44)
[2019-07-11] MEDS: D5 0.45 NS 1,000 ML IV SCH ×3 (00:56→20:23)
[2019-07-11] MEDS: LEVOTHYROXINE SOD 0.075 MG TAB PO SCH (05:21)
[2019-07-11] MEDS: LEVOTHYROXINE SOD 0.1 MG TAB PO SCH (05:21)
[2019-07-11] MEDS: PANTOPRAZOLE 40MG TABLET PO SCH (05:22)
[2019-07-11] MEDS: FENTANYL CITR 100 MCG/2 ML IV PRN ×3 (05:22→13:40)
[2019-07-11 06:11] LABS: Absolute Lymphocytes (CBC) 0.6 K/uL (0.7-4.9); Basophils % 0.2 % (0-1.3); Hematocrit 27.2 % (36.0-45.0); Lymphocytes % 5.4 % (15.3-44.8); MPV 9.5 fL (7.6-11.3); RBC Red Blood Cell Count 3.12 M/uL (3.86-4.86)
[2019-07-11 06:28] LABS: Magnesium 1.8 mg/dL (1.8-2.4); Potassium 4.3 mmol/L (3.5-5.1)
[2019-07-11 08:17] LABS: Anisocytosis 2+; Blood Morphology Comment NOTED (NOT SEEN); Platelet Estimate DECR; Polychromasia 1+; Urine White Blood Cell Casts OK
[2019-07-11] MEDS: LORATADINE 10 MG TAB PO SCH (08:26)
[2019-07-11] MEDS: HYDROXYCHLOROQUINE 200MG TAB PO SCH ×2 (08:26→20:23)
[2019-07-11] MEDS: SPIRONOLACTONE 25 MG TABLET PO SCH (08:27)
[2019-07-11] MEDS: FUROSEMIDE 20 MG TABLET PO SCH (08:28)
[2019-07-11] MEDS: HYDROCODONE/APAP 5/325 MG TAB PO PRN ×3 (08:34→18:24)
[2019-07-11] MEDS: ENSURE CLEAR 200 ML CAN PO SCH ×3 (09:00→20:23)
[2019-07-11] MEDS: ONDANSETRON 4 MG/2 ML VIAL IV PRN (09:17)
[2019-07-11] MEDS: MEPERIDINE HCL 25 MG/0.5 ML IV PRN ×2 (16:45→20:26)
[2019-07-11] MEDS: DOCUSATE NA 100 MG CAP PO SCH (20:23)
--- NOTE | 2019-07-11 23:24 | PN ---
Date of Progress Note: 07/11/2019 Subjective: The patient was seen this morning for followup. There was no family member with her whe n I saw her this morning. She was lying in bed, appears same as yesterday. Denies any new complaint s. Appetite is fair. Objective: Vital Signs: Reviewed. HEENT: Unremarkable. Lungs: Clear to auscultation. Heart: Sounds normal. Abdomen: Soft. Bowel sounds normal. No guarding, rigidity. Vague abdominal tenderness unchanged. No rebound tenderness. Presence of ascites. Extremities: No leg edema. Laboratory Data: White count 11.1, hemoglobin 9.1, platelets 57. Sodium 136, potassium 4.3, chlorid e 110, bicarb 22, BUN 24, creatinine 1.77, glucose 122, magnesium 1.8. Impression: 1.Gross hematuria. 2.Urinary tract infection. 3.Ovarian cancer with peritoneal carcinomatosis. 4.Cirrhosis of liver with ascites. 5.Acute kidney injury. 6.Anemia. 7.Thrombocytopenia. 8.Generalized weakness. 9.Debility. 10.Decubitus ulcer, stage II. Plan: We will continue current medication, which is current antibiotic. Patient has a Hirsch cathete r in place with gross hematuria, which has not improved any. We do not have any urologist ammonia box tender th is entire week. Intake and output records reviewed. We will continue current IV fluid. Her renal f unction is deteriorating in last 48 hours. Prior to that, it was improving almost on a day-to-day ba sis, but in last 48 hours it is slowly getting worse. We have started her on furosemide and spironol actone about 48 hours ago, so we will not blame any worsening of renal function on this diuretic medi cation as she started to have this problem when we started her on this diuretic medication. I strong ly believe that this gross hematuria, bilateral hydronephrosis, and worsening of the renal function a re all due to her underlying cancer and she has severe malnutrition, significant generalized weakness , debility. She has not gotten out of bed at all since she has been in the hospital and I did call a nd talk to her oncologist, Dr. Duff, today and all these details were discussed with her an d I explained to her that yesterday I did talk to family regarding my recommendation of hospice care and Dr. Duff will also communicate with family and she will provide her recommendation to t he family. We will see her tomorrow morning for followup. Overall, prognosis is poor. MARCY/MODL Voice ID: [id number] Report ID: [id number]
[2019-07-12] MEDS: PIPER/TAZO/NS 2.25gm 2.25 GM/50 ML BAG IVPB SCH ×2 (00:07→08:31)
[2019-07-12] MEDS: MEPERIDINE HCL 25 MG/0.5 ML IV PRN ×3 (02:11→12:24)
[2019-07-12] MEDS: HYDROCODONE/APAP 5/325 MG TAB PO PRN ×3 (05:15→13:52)
[2019-07-12] MEDS: D5 0.45 NS 1,000 ML IV SCH (05:15)
[2019-07-12] MEDS: LEVOTHYROXINE SOD 0.075 MG TAB PO SCH (05:40)
[2019-07-12] MEDS: PANTOPRAZOLE 40MG TABLET PO SCH (05:40)
[2019-07-12] MEDS: LEVOTHYROXINE SOD 0.1 MG TAB PO SCH (05:40)
[2019-07-12] MEDS ORDERED: MAGNESIUM SULFATE 1 gm IVPB 1 GM/100 ML BAG IV ONE (05:49)
[2019-07-12 07:37] LABS: Absolute Lymphocytes (CBC) 0.7 K/uL (0.7-4.9); Basophils % 0.5 % (0-1.3); Hematocrit 29.6 % (36.0-45.0); Lymphocytes % 5.8 % (15.3-44.8); MPV 9.5 fL (7.6-11.3); RBC Red Blood Cell Count 3.36 M/uL (3.86-4.86)
[2019-07-12 07:45] LABS: Magnesium 2.4 mg/dL (1.8-2.4); Potassium 4.5 mmol/L (3.5-5.1)
[2019-07-12] MEDS: LORATADINE 10 MG TAB PO SCH (08:32)
[2019-07-12] MEDS: SPIRONOLACTONE 25 MG TABLET PO SCH (08:33)
[2019-07-12] MEDS: HYDROXYCHLOROQUINE 200MG TAB PO SCH (08:33)
[2019-07-12] MEDS: FUROSEMIDE 20 MG TABLET PO SCH (08:33)
[2019-07-12] MEDS: ENSURE CLEAR 200 ML CAN PO SCH ×2 (08:34→14:00)
[2019-07-12 09:33] VITALS: O2SAT 98
[2019-07-12 12:03] VITALS: BP 121/77; TEMP 98.2
--- NOTE | 2019-07-13 02:58 | DS ---
Date of Discharge: 07/12/2019 Disposition: Discharged to go home with hospice care. Physical Examination: HEENT: Unremarkable. Lungs: Clear to auscultation. Heart: Sounds normal. Abdomen: Soft. Bowel sounds normal. Presence of ascites with mild abdominal tenderness. Extremities: No leg edema. Discharge Medication Instructions: Patient to be admitted to hospice care upon discharge and hospice medical data entry clerk to take over her care and comfort care orders per hospice. Laboratory Data: Labs done during this hospitalization: Chest x-ray, no acute cardiopulmonary campos es. CAT scan of the abdomen and pelvis done on 07/03/2019. At the time of presentation to the ER sh ows bilateral hydronephrosis. Renal and bladder ultrasound done on 07/09/2019, also showed bilateral hydronephrosis, unchanged from 07/03 CAT scan. Cytology on peritoneal fluid was negative for any ma lignant cells and peritoneal fluid culture was negative. Blood culture remained negative and urine c ulture from 07/03/2019 shows Proteus. Upon admission, white count was 0.3, hemoglobin 11.7, platelet s 90. Lowest platelet count was 45, which was on 07/04/2019. Highest WBC count was 21.2 on 07/07/19 20. Last CBC today, white count 12.2, hemoglobin 9.8, platelets 77. Upon admission, sodium 140, pot assium 4.6, chloride 107, bicarb 23, BUN 36, creatinine 2.15, glucose 89, procalcitonin 2.38. Lowest creatinine was 1.61 on 07/09/2019 and then her creatinine started going up and last creatinine today is 1.90. Her albumin level was 1.70 on 07/10/2019. Hospital Course: 74-year-old female patient admitted to the hospital after she presented to emergenc y room with complaints of feeling weak and abdominal pain. Please see dictated H and P for more info rmation. Patient was evaluated in the emergency room and admitted to the hospital with acute pyelone phritis, volume depletion, neutropenia, fever. She has ovarian cancer with peritoneal carcinomatosis and is undergoing chemotherapy with help of oncologist, Dr. Manning. She was started on IV fluid, IV a ntibiotics. Patient has ascites and she also has underlying cirrhosis of liver. So, during this hos pitalization, we did perform paracentesis and this was therapeutic paracentesis because of significan tly large volume of ascites as it was causing abdominal discomfort. Peritoneal fluid cytology was ne gative for any malignant cells and peritoneal fluid Gram stain and culture was negative. Day after p aracentesis was done, patient started to have her complaints of abdominal distention again; and on ex am, we noticed that over period of time she started to have more ascites. So, what we did day after admission, we stopped her amlodipine and clonidine she was taking for hypertension and in place of th at started furosemide 20 mg daily and spironolactone 25 mg daily. The day these medications were sta rted, her creatinine already had started to go up from 1.6 to 1.7 range and her creatinine continued to get higher and higher in last few days and that is not due to diuretic use as the patient already had started this problem when the diuretic was started. She developed stage II decubitus ulcer on th e left in her buttock and Dr. Arcos was consulted, who provided wound care management care. Air horace ress was ordered, but patient did not use it because it was causing more back pain. Order was writte n to change her position every 2 hours. Her nutritional status was extremely poor with albumin level 1.7 indicating severe malnutrition. Nutritional supplement was ordered. She has very poor appetite and that continued to remain that way during this entire hospital stay. She started to have gross h ematuria and Hirsch catheter was placed. Ultrasound was done indicating bilateral hydronephrosis. Th ere was no evidence of any stone. So, we suspect that she has some pelvic disease due to her ovarian cancer and peritoneal carcinomatosis and concern is that if this has invaded into her urinary tract or there is some other urological explanation for this. We do not have any urologist available for c onsultation. She has significant generalized weakness and physical therapy was consulted. During th is entire hospital stay, patient has not gotten out of bed at all because of her significant debility and weakness problem. Her condition started to deteriorate during this hospitalization and I did br ing up the discussion with patient and family member regarding consideration of hospice care and also contacted her oncologist, Dr. Manning, and all the details were explained to her and today Dr. Manning had meeting with the patient's family and patient. Then, after that meeting, patient and family decided to go home with hospice care and Dr. Manning made arrangements for her to go on [facility] and all th e arrangements completed today and the patient was discharged to go home with hospice care. Her over all prognosis is very poor. Final Diagnoses: 1.Acute kidney injury. 2.Volume depletion. 3.Acute pyelonephritis. 4.Gross hematuria. 5.Pancytopenia. 6.Decubitus ulcer, stage II, left buttock. 7.Cirrhosis of liver with ascites. 8.Ovarian cancer with peritoneal carcinomatosis. 9.Hypertension. 10.Hyperlipidemia. 11.Gastroesophageal reflux disease. MARCY/MODL Voice ID: [id number] Report ID: [id number]
== END 2019-07-12 16:34 | disposition hospice, home (50) | DRG 689 ==
LOC: ER 00:15 → ERHOLD 04:55 → 2ND 15:05
PROVIDERS: ADMIT Internal Medicine; ATTEND Internal Medicine
PROC: 0W9G3ZX Drainage of Peritoneal Cavity, Percutaneous Approach, Diagnostic (ICD-10-PCS; principal; 2019-07-07)
DX: N10 Acute pyelonephritis (principal); E43 Unspecified severe protein-calorie malnutrition; D61.818 Other pancytopenia; R18.8 Other ascites; C56.9 Malignant neoplasm of unspecified ovary; C78.6 Secondary malignant neoplasm of retroperitoneum and peritoneum; B96.4 Proteus (mirabilis) (morganii) as the cause of diseases classified elsewhere; N17.9 Acute kidney failure, unspecified; E86.9 Volume depletion, unspecified; R31.0 Gross hematuria; L89.322 Pressure ulcer of left buttock, stage 2; K74.60 Unspecified cirrhosis of liver; I10 Essential (primary) hypertension; E78.5 Hyperlipidemia, unspecified; K21.9 Gastro-esophageal reflux disease without esophagitis; R50.81 Fever presenting with conditions classified elsewhere; Z68.35 Body mass index [BMI] 35.0-35.9, adult; N13.30 Unspecified hydronephrosis
CPT/HCPCS: 36415; 49083; 51702; 71045; 74176; 76770; 80048; 80053; 80076; 81001; 81003; 81015; 82140; 82947; 83605; 83690; 83735; 84132; 84145; 85025; 85610; 85730; 87040; 87070; 87077; 87086; 87088; 87186; 87804; 88108; 88305; 93005; 96361; 96365; 96375; 97110; 97112; 97161; 97530; 99285; J0692; J1447; J2175; J2405; J3010; J3475; J7030; J7040; J7799; P9047